=== PATIENT | female | born 1960 | race Hispanic/Latino ===

== ENCOUNTER 2018-01-04 12:08 | Emergency (ER) | payer BC, OTHER | END 2018-01-04 13:20 | disposition left against medical advice (07) | LOC: EDH 12:08 | DX: R51 Headache (principal); Z53.21 Procedure and treatment not carried out due to patient leaving prior to being seen by health care provider ==

== ENCOUNTER 2024-09-27 12:17 | Emergency (ER) | payer BC, OTHER ==
[~2024-09-27] VITALS: Ht 154.9 cm; Wt 74.8 kg
[~2024-09-27 12:17] MED LIST: IBUP-2077 PO
[2024-09-27 12:42] LABS: IMMATURE GRANULOCYTE ABSOLUTE 0.01 K/uL (0-1); NUCLEATED RED BLOOD CELLS 0.0 % (0.0-0.19); PLATELET COUNT (AUTO) 201 K/uL (130-400); RED BLOOD CELL COUNT(AUTO) 4.26 MIL/uL (4.00-5.50); RED CELL DISTRIBUTION WIDTH 12.2 % (11.0-15.5); WHITE BLOOD COUNT (AUTO) 5.6 K/uL (4.8-10.8)
[2024-09-27] MEDS: 0.9%NACL 1000ML 1,000 ML IV ONE (12:46)
[2024-09-27 12:50] LABS: CREATININE 0.9 mg/dL (0.5-1.0); GLOMERULAR FILTR. RATE CALC 72.0 mL/min (>90); GLUCOSE,RANDOM 159.0 mg/dL (70-105); SODIUM SERUM 142.0 mmol/L (136-145); UREA NITROGEN, BLOOD 18.0 mg/dL (7-18)
--- NOTE | 2024-09-27 12:51 | EKG ---
[facility] Test Date: 2024-09-27 Test Time: 12:46:53 Pat Name: RUTH WHARTON Department: ED Room: Gender: F Java Tech: 07 : 1960 Requested By: FARRAH POLO Order Number: [id number] Reading MD: Yovanny Bullock Measurements Intervals [place] Rate: 85 P: 64 MD: 156 QRS: 27 QRSD: 98 T: 28 QT: 369 QTc: 440 Interpretive Statements Sinus rhythm Probable left atrial enlargement No previous ECG available for comparison Electronically Signed On 09-27-2024 15:04:47 CDT by Yovanny Bullock Please click the below link to view image of tracing.
[2024-09-27 12:56] LABS: ASPARTATE AMINOTRANSFERASE 22.0 U/L (10-37); CREATINE KINASE, TOTAL 49.0 U/L (21-232); TOTAL PROTEIN, SERUM 7.4 g/dL (6.0-8.3)
[2024-09-27 12:58] LABS: APPEARANCE,URINE CLEAR (CLEAR); GLUCOSE, URINE (UA) NEGATIVE (NEGATIVE); LEUKOCYTE ESTERASE ,URINE NEGATIVE Leu/uL (NEGATIVE); NITRATE,URINE NEGATIVE (NEGATIVE); OCCULT BLOOD,URINE NEGATIVE (NEGATIVE)
[2024-09-27 13:07] LABS: ADD UA MICROSCOPIC YES
[2024-09-27 13:11] LABS: SQUAMOUS EPITHELIAL CELL,UR RARE /HPF (0-2)
--- NOTE | 2024-09-27 13:15 | ERN ---
General Chief Complaint: Abdominal Pain Stated Complaint: RUQ, RLQ PAIN Time Seen by MD: 12:19 Source: patient History of Present Illness Initial Comments Patient is a 63-year-old female coming in complaining of right abdominal pain. Patient states that this has been ongoing for a couple of days. No fever no chills. Mild nauseousness also present. Allergies: Coded Allergies: codeine (Unverified Allergy, Unknown, 08/10/24) guaifenesin (Unverified Allergy, Unknown, 08/10/24) Home Meds Active Scripts Ibuprofen (Ibuprofen 800 mg Tab) 800 Mg Tab, 800 MG PO Q8H PRN for fever or pain, #30 TAB 0 Refills Prov:GINNY CARRION [facility] 08/10/24 Past Medical History Past Medical History: Hypertension Past Surgical History: BTL Female( History) History: Not Applicable ROS Dictation CONSTITUTIONAL: No chills, no fever, no weakness, no diaphoresis, no malaise. HEAD/FACE: No signs of trauma. EENT: No eye pain, no blurred vision, no tearing, no double vision, no ear pain, no ear discharge, no nose pain, no nasal congestion, no throat pain, no throat swelling, no mouth pain. RESPIRATORY: No cough, no orthopnea, no SOB, no stridor, no wheezing. CARDIOVASCULAR: No chest pain, no edema, no palpitations, no syncope. GASTROINTESTINAL/ABDOMINAL: No abdominal pain, no constipation, no diarrhea, no nausea, no vomiting. GENITOURINARY: abnormal discharge, no dysuria, no frequent urination, no hematuria. No complaints of pain in the genitals. MUSCULOSKELETAL: No back pain, no gout, no joint pain, no joint swelling, no muscle pain, no muscle stiffness, no neck pain. INTEGUMENTARY: No change in color, no change in hair/nails, no dryness, no lesion, no lumps, no rash. NEUROLOGICAL/PSYCH: No anxiety, not depressed, no emotional problem, no headache, no numbness, no pre-existing deficit, no history of seizures, no tremors, no weakness. HEMATOLOGIC/LYMPHATIC: Not anemic, no history of blood clots, no apparent bleeding, no bruising, glands not swollen. All Systems Negative, Except as Noted. Physical Exam Physical Exam Dictation VITAL SIGNS: Reviewed. GENERAL APPEARANCE: Alert, oriented x3, no acute distress, obese. HEAD AND FACE: Non-traumatic. EYES: PERRL, pink conjunctivas, eyelid no trauma, anterior chamber clear. EARS: Pinnas intact and no signs of trauma or erythema. Ear canals clear and no discharge. TMs no erythema. NOSE: No discharge, no bleeding. OROPHARYNX: Mouth normal, teeth no caries, tongue pink. Pharynx clear, no erythema. Tonsils no exudates, no abscesses noted. Mucous membrane moist. NECK: Supple, non-tender, no thyromegaly, no masses, no JVD, no bruits. BREAST: Deferred. CHEST: No tenderness, no crepitus, no paradoxical movement, no retractions. LUNGS: Clear, well-ventilated, symmetric, no rales, no wheezing, no rhonchi, no stridor, good breath sounds bilaterally. HEART: Regular rate, regular rhythm, no murmur, no gallops. VASCULAR: No peripheral edema. ABDOMEN: Soft, positive bowel sounds, nondistended, no guarding, right abdominal pain on palpation, no rebound, no masses no hepatomegaly, no splenomegaly, no Chen's sign, no hernias. RECTAL: Deferred. GENITAL: Deferred. NEUROLOGICAL: Normal speech, gross motor function intact, gross sensory function intact. MUSCULOSKELETAL: Neck nontender, full range of motion, back nontender, full range of motion. EXTREMITIES: Nontender, full range of motion. SKIN: Color pink, dry, no turgor, no rash, no lacerations, no abrasions, no contusions. LYMPHATICS: Deferred. Results Laboratory and Microbiology Lab and Micro Result Laboratory Tests Test 09/27/24 12:33 09/27/24 12:42 White Blood Count 5.6 K/uL (4.8-10.8) Red Blood Count 4.26 MIL/uL (4.00-5.50) Hemoglobin 14.5 g/dL (12.0-16.0) Hematocrit 41.5 % (36-48) Mean Corpuscular Volume 97.4 fL (79-99) Mean Corpuscular Hemoglobin 34.0 pg (27.0-33.0) H Mean Corpuscular Hemoglobin Concent 34.9 g/dL (32.0-36.0) Red Cell Distribution Width 12.2 % (11.0-15.5) Platelet Count 201 K/uL (130-400) Mean Platelet Volume 10.3 fL (7.5-10.5) Immature Granulocyte % (Auto) 0.2 % (0-1) Neutrophils (%) (Auto) 41.5 % (40.0-77.0) Lymphocytes (%) (Auto) 48.3 % (21.0-51.0) Monocytes (%) (Auto) 8.8 % (3.0-13.0) Eosinophils (%) (Auto) 0.7 % (0.0-8.0) Basophils (%) (Auto) 0.5 % (0.0-5.0) Neutrophils # (Auto) 2.3 K/uL (1.8-7.7) Lymphocytes # (Auto) 2.7 K/uL (1.0-4.8) Monocytes # (Auto) 0.5 K/uL (0.1-1.0) Eosinophils # (Auto) 0.04 K/uL (0.00-0.70) Basophils # (Auto) 0.03 K/uL (0.00-0.20) Absolute Immature Granulocyte (auto 0.01 K/uL (0-1) Nucleated Red Blood Cells 0.0 % (0.0-0.19) Sodium Level 142 mmol/L (136-145) Potassium Level 3.4 mmol/L (3.5-5.1) L Chloride Level 105 mmol/L (101-111) Carbon Dioxide Level 25 mmol/L (21-32) Blood Urea Nitrogen 18 mg/dL (7-18) Creatinine 0.9 mg/dL (0.5-1.0) Glomerular Filtration Rate Calc 72 mL/min (>90) Random Glucose 159 mg/dL (70-105) H Total Calcium 9.1 mg/dL (8.5-10.1) Total Bilirubin 0.4 mg/dL (0.2-1.0) Aspartate Amino Transf (AST/SGOT) 22 U/L (10-37) Alanine Aminotransferase (ALT/SGPT) 28 U/L (12-78) Alkaline Phosphatase 115 U/L (50-136) Total Creatine Kinase 49 U/L (21-232) Troponin I High Sensitivity 4 ng/L (4-50) Total Protein 7.4 g/dL (6.0-8.3) Albumin 3.8 g/dL (3.5-5.0) Lipase 34 U/L (16-77) Urine Color YELLOW (YELLOW) Urine Appearance CLEAR (CLEAR) Urine pH 6.5 (5.0-8.0) Urine Specific [place] 1.025 (1.001-1.031) Urine Protein NEGATIVE mg/dL (NEGATIVE) Urine Glucose (UA) NEGATIVE mg/dL (NEGATIVE) Urine Ketones NEGATIVE mg/dL (NEGATIVE) Urine Occult Blood NEGATIVE (NEGATIVE) Urine Nitrate NEGATIVE (NEGATIVE) Urine Bilirubin NEGATIVE mg/dL (NEGATIVE) Urine Urobilinogen 3 mg/dL (0.2-1.0) H Urine Leukocyte Esterase NEGATIVE [place]/uL Urine RBC 6-10 /HPF (0-1) H Urine WBC 2-5 /HPF (0-1) H Urine Squamous Epithelial Cells RARE /HPF (0-2) Urine Amorphous Crystals (Auto) RARE /LPF (None Seen) Urine Bacteria None /HPF (None Seen) Labs Reviewed?: Yes EKG/XRAY/US/CT/MRI EKG Comment 09/27/2024 time 12:46 p.m. Ventricular rate [address] wave elevation or depression CT Scan Comment [address] [address] [place] [address] IMAGING REPORT Signed PATIENT: RUTH WHARTON MR#: [id number] : 1960 SEX: F AGE: 63 LOCATION: [facility] ORDER [id number] STATUS: REG ER REPORT#: [id number] SERVICE [id number] REASON: r abd opain ORDERING PHYSICIAN: FARRAH POLO MD PROCEDURE: ABD PEL WO - CT ABDOMEN/PELVIS W/O CONTRAST EXAM: CT Abdomen and Pelvis without IV contrast CLINICAL HISTORY: r abd opainRight abdominal pain TECHNIQUE: Axial computed tomography images of the abdomen and pelvis without intravenous contrast. CT scan performed according to ALARA. Automated exposure control used during exam. CONTRAST: without intravenous contrast. COMPARISON: None provided. FINDINGS: Mild linear atelectasis and/or parenchymal scarring at the lung bases. Limited evaluation of the abdominal organs without intravenous contrast. There is hepatomegaly; the right hepatic lobe measures up to 17.3 cm in the craniocaudal dimension. Hepatic steatosis. Gallbladder, bilateral adrenal glands, spleen, and pancreas are unremarkable. There is a 0.4 cm calculus at the right UVJ resulting in moderate to severe right hydronephrosis and also right perinephric fat stranding. No additional radiopaque calculi seen within either kidney, along the course of the left ureter, or within the bladder. Bowel loops are normal in caliber without evidence of obstruction, ileus, or obvious bowel wall thickening. The appendix is normal. The uterus and ovaries demonstrate appropriate CT appearances. There is no ascites or lymphadenopathy. Atherosclerotic vascular calcifications are noted. There is no acute or suspicious osseous abnormality. IMPRESSION: 1. 0.4 cm right UVJ calculus with moderate to severe right hydronephrosis and right perinephric fat stranding. 2. Hepatomegaly with hepatic steatosis. /[place] DICTATED BY: ZEENAT BHANDARI Jr., MD DATE: 09/27/24 1632 ELECTRONICALLY SIGNED BY: ZEENAT BHANDARI Jr., MD DATE: 09/27/24 1632 [facility] MDM: Differential diagnosis: Ureter stone, kidney stone, Rationale: Tests considered and ordered secondary to shared decision making include: Previous outside records reviewed: Old ER visits. Risk of complication and/or morbidity or mortality of patient management: None Medications-Per medication reconciliation Need for hospitalization: Patient does not meet criteria for hospitalization. Need for emergency major/minor surgery: No Patient is a 63-year-old female coming in complaining of right flank pain CT disclose a 4 mm stone. Patient will be discharged in stable condition with a diagnosis of ureter stone I did advised her appropriate follow up with the urologist and PCP for ongoing management. Symptomatic medication will be given. ED Course Orders Procedure Category Date Status Time Cbc With Differential LAB 09/27/24 Complete 12:19 Comprehensive LAB 09/27/24 Complete Metabolic Panel 12:19 Troponin I High LAB 09/27/24 Complete Sensitivity 12:19 Urinalysis Profile LAB 09/27/24 Complete 12:19 12 Lead Ekg Tracing- EKG 09/27/24 Resulted Technical 12:19 0.9%Nacl 1000ml (Ns PHA 09/27/24 Complete 1000ml) 12:30 Ondansetron 4mg Inj PHA 09/27/24 Complete (Zofran 4mg Inj) 12:30 Pantoprazole 40mg Inj PHA 09/27/24 Complete (Protonix 40mg Inj 12:30 Creatine Kinase, Total LAB 09/27/24 Complete 12:19 Lipase LAB 09/27/24 Complete 12:19 Ct Abdomen/Pelvis W/O CT 09/27/24 Resulted Contrast 13:13 Ketorolac PHA 09/27/24 Complete Tromethamine 15mg/Ml 13:30 Current Medications Medications (Trade) Dose Ordered Sig/Aletha Route PRN Reason Start Time Stop Time Status Last Admin Dose Admin Ketorolac Tromethamine (toRADol) 15 mg ONCE ONCE IV 09/27/24 13:30 09/27/24 13:31 DC 09/27/24 13:34 Ondansetron HCl (zoFRAN 4MG INJ) 4 mg ONCE ONCE IVP 09/27/24 12:30 09/27/24 12:31 DC 09/27/24 12:47 Pantoprazole Sodium (PROTonix 40MG INJ) 40 mg ONCE ONCE IVP 09/27/24 12:30 09/27/24 12:31 DC 09/27/24 12:47 Sodium Chloride 1,000 ml @ 0 mls/hr ONCE ONCE IV 09/27/24 12:30 09/27/24 12:31 DC 09/27/24 12:46 Vital Signs Date Time Temp Pulse Resp B/P (MAP) Pulse Ox O2 Delivery O2 Flow Rate FiO2 09/27/24 12:18 98.2 9 16 162/82 99 Room Air* 0 21 09/27/24 12:18 98.2 99 16 162/82 99 Room Air 0 DX & DISP Disposition: Discharge Departure Impression: Primary Impression: Ureteral stone with hydronephrosis Condition: Stable Scripts Tamsulosin HCl (Flomax) 0.4 Mg Cap.er.24h 1 CAP PO DAILY for 5 Days, #5 CAP 0 Refills Prov: FARRAH POLO MD 09/27/24 Cephalexin Monohydrate (Keflex) 500 Mg Cap 1 CAP PO BID for 7 Days, #14 CAP 0 Refills Prov: FARRAH POLO MD 09/27/24 Ketorolac Tromethamine (Ketorolac Tromethamine) 10 Mg Tablet 1 TAB PO Q6HPRN PRN for pain for 5 Days, #20 TAB 0 Refills Prov: FARRAH POLO MD 09/27/24 Additional Instructions: FOLLOW-UP WITH PRIMARY CARE PROVIDER IN 1 TO 2 DAYS. TAKE MEDICATIONS DIRECTED HERE IN THE EMERGENCY ROOM. OKAY TO CONTINUE HOME MEDICATIONS UNLESS OTHERWISE DISCUSSED DURING YOUR VISIT IN THE EMERGENCY ROOM TODAY. RETURN TO YOUR NEAREST EMERGENCY ROOM IF SYMPTOMS WORSEN OR IF THERE IS NO IMPROVEMENT. CALL 911 IF YOU NEED IMMEDIATE ASSISTANCE. TAKE TYLENOL [id number] NEEDED AND IF NO CONTRAINDICATIONS ARE PRESENT. INCREASE ORAL HYDRATION. A WOUND CULTURE OR URINE CULTURE WAS ORDERED HERE IN THE EMERGENCY ROOM DEPARTMENT PLEASE FOLLOW-UP WITH PRIMARY CARE PROVIDER AND ADVISE THEM TO GET REPORTS FROM OUR FACILITY. IF YOU HAD ANY JOSEF WRAP/SPLINTS THAT WERE APPLIED HERE, PLEASE DO NOT REMOVE THEM UNTIL YOU SEE YOUR PRIMARY CARE OR SPECIALTY. Referrals: Referrals: NAVYA PEDERSEN [facility]PERATOR [facility] (PCP) DEVIKA BLANCO MD Time of Disposition: 15:57 FARRAH POLO MD Sep 27, 2024 13:15
--- NOTE | 2024-09-27 15:33 | HMCIMG ---
EXAM: CT Abdomen and Pelvis without IV contrast CLINICAL HISTORY: r abd opainRight abdominal pain TECHNIQUE: Axial computed tomography images of the abdomen and pelvis without intravenous contrast. CT scan performed according to ALARA. Automated exposure control used during exam. CONTRAST: without intravenous contrast. COMPARISON: None provided. FINDINGS: Mild linear atelectasis and/or parenchymal scarring at the lung bases. Limited evaluation of the abdominal organs without intravenous contrast. There is hepatomegaly; the right hepatic lobe measures up to 17.3 cm in the craniocaudal dimension. Hepatic steatosis. Gallbladder, bilateral adrenal glands, spleen, and pancreas are unremarkable. There is a 0.4 cm calculus at the right UVJ resulting in moderate to severe right hydronephrosis and also right perinephric fat stranding. No additional radiopaque calculi seen within either kidney, along the course of the left ureter, or within the bladder. Bowel loops are normal in caliber without evidence of obstruction, ileus, or obvious bowel wall thickening. The appendix is normal. The uterus and ovaries demonstrate appropriate CT appearances. There is no ascites or lymphadenopathy. Atherosclerotic vascular calcifications are noted. There is no acute or suspicious osseous abnormality. IMPRESSION: 1. 0.4 cm right UVJ calculus with moderate to severe right hydronephrosis and right perinephric fat stranding. 2. Hepatomegaly with hepatic steatosis. /[place]
[2024-09-27] MEDS ORDERED: CEPH500B PO (16:00)
[2024-09-27] MEDS ORDERED: KETO10TA2 PO (16:00)
[2024-09-27 16:01] VITALS: BP 127/80; PULSE 77; RESP 17; TEMP 98; O2SAT 99
[2024-09-27] MEDS ORDERED: TAMS-55 PO (16:01)
== END 2024-09-27 16:52 | disposition home or self-care (01) ==
LOC: EDH 12:17
DX: N13.2 Hydronephrosis with renal and ureteral calculous obstruction (principal); I10 Essential (primary) hypertension; Z88.5 Allergy status to narcotic agent; Z98.51 Tubal ligation status
CPT/HCPCS: 99284; 74176; 96374; 96361; 96375; 82550; 84484; 80053; 83690; 85025; 81001; 36415; 93005; J1885; J7030; J2405; J2470